=== PATIENT | female | born 1985 | race Caucasian/White ===

== ENCOUNTER 2020-10-21 09:00 | Emergency (ER) | payer OTHER ==
[2020-10-21 10:32] LABS: BASOPHIL 0.5 % (0-2); EOSINOPHIL 0.4 % (0-5); HCT 43.5 % (37.0-47.0); HGB 15.2 g/dl (12.5-16.0); LYMPHOCYTE 9.6 % (15-48); MCH 32.9 pg (25.0-31.0); MCHC 34.9 g/dL (32.0-36.0); MCV 94.2 fL (78.0-100.0); MPV 9.2 fL (6.0-9.5); NRBC 0; PLT 340 K/uL (150-400); RBC 4.62 M/uL (4.20-5.40); RDW 12.3 % (11.5-14.0); WBC 11.8 K/uL (4.0-10.5)
[2020-10-21 10:47] LABS: ALBUMIN 3.8 g/dL (3.4-5.0); BILIRUBIN - TOTAL 0.4 mg/dL (0.2-1.0); BUN/CREAT RATIO (CALC) 15.9 RATIO; CREATININE 0.88 mg/dL (0.51-0.95); GLOBULIN (CALCULATION) 3.8 g/dL; POTASSIUM 3.9 mmol/L (3.5-5.1); TOTAL PROTEIN 7.6 g/dL (6.4-8.2)
[2020-10-21 13:39] LABS: BILIRUBIN NEGATIVE (NEGATIVE); BLOOD 3+ Ery/uL (NEGATIVE); CLARITY CLOUDY (CLEAR); COLOR YELLOW (YELLOW); GLUCOSE (U) NORMAL (NORMAL); LEUKOCYTES NEGATIVE Leu/uL (NEGATIVE); NITRITE NEGATIVE (NEGATIVE); PROTEIN 1+ mg/dL (NEGATIVE); SPECIFIC GRAVITY 1.025 (1.001-1.030); UROBILINOGEN 0.2 mg/dL (0.2-1.0); pH 7.5 (5.0-9.0)
[2020-10-21 14:03] LABS: SQUAMOUS EPITHELIAL CELLS 20-50; URINARY RBC TNTC
[2020-10-21 14:04] LABS: BACTERIA 1+
[2020-10-21] MEDS ORDERED: NORCO 5-325 TA1 EACH PO (14:54)
[2020-10-21] MEDS ORDERED: KETOROLAC TROME10 MG PO (14:54)
== END 2020-10-21 15:32 | disposition home or self-care (01) ==
LOC: FER 09:00
PROVIDERS: Emergency Medicine
DX: N13.2 Hydronephrosis with renal and ureteral calculous obstruction (principal); Z88.8 Allergy status to other drugs, medicaments and biological substances
CPT/HCPCS: 36415; 80053; 81001; 85025; J1885; J2405